=== PATIENT | male | born 1990 | race Caucasian/White ===

== ENCOUNTER 2016-07-05 22:40 | Emergency (ER) | payer BC, OTHER ==
[2016-07-06 06:31] VITALS: BP 134/75
--- NOTE | 2016-07-06 07:50 | RAD ---
HISTORY: Foreign body ingestion COMPARISONS: None VIEWS: 2, frontal and lateral views of the soft tissues of the neck FINDINGS: There is no radiopaque foreign body. There is continuous air column from the pharynx the trachea. The prevertebral soft tissues are normal. The epiglottis and aryepiglottic folds are normal. The lung apices are clear. Skull base is unremarkable. IMPRESSION: UNREMARKABLE SOFT TISSUES OF THE NECK. NO RADIOPAQUE FOREIGN BODY.
--- NOTE | 2016-07-11 20:38 | ED ---
Annmarie, DoctorCony, scribed for Stacy Glaser MD on 07/06/16 at 0613 . Complex/Multi-Sys Presentation - HPI Summary HPI Summary: 26 year old male arrived to [facility] c/o possible ingestion of a piece of aluminum can and subsequent vomiting and hemoptysis yesterday. Pass [place] better after vomiting , but did not notice any piece of the can in his vomit. Noted that today he continued to feel something in the back of his throat. He has been able to eat and drink, and reports that his pain increases with drinking. - History Of Current Complaint Chief Complaint: EDForeignBodyEsophag Time Seen by Provider: 07/05/16 22:51 Hx Obtained From: Patient Onset/Duration: Gradual Onset, Lasting Days, Resolved Timing: Intermittent, Lasting:, Minutes Severity Currently: Moderate Severity Initially: Moderate Location: Pain At: - neck, back of throat Character: Sharp Associated Signs And Symptoms: Positive: Hemoptysis, Vomiting. Negative: Cough , Abdominal Pain - Allergies/Home Medications Allergies/Adverse Reactions: Allergies Allergy/AdvReac Type Severity Reaction Status Date / Time No Known Allergies Allergy Verified 07/05/16 22:48 PMH/Surg Hx/FS Hx/Imm Hx Previously Healthy: Yes - Surgical History Surgery Procedure, Year, and Place: No prior surgery Infectious Disease History: No Infectious Disease History: Denies: Traveled Outside the [place] in Last 30 Days - Family History Known Family History: Positive: Hypertension - Social History Alcohol Use: Weekly Substance Use Type: Reports: None Smoking Status (MU): Never Smoked Tobacco Review of Systems Negative: Fever Positive: Other - hemoptysis Positive: Vomiting, Other - discomfort in the back of the throat . Negative: Abdominal Pain All Other Systems Reviewed And Are Negative: Yes Physical Exam Triage Information Reviewed: Yes Vital Signs On Initial Exam: Initial Vitals Temp Pulse Resp BP Pulse Ox 97.4 F 83 14 173/81 100 07/05/16 22:42 07/05/16 22:42 07/05/16 22:42 07/05/16 22:42 07/05/16 22:42 Vital Signs Reviewed: Yes Appearance: Positive: No Pain Distress, Well-Nourished, Ill-Appearing - mildly ill-appearing Skin: Positive: Warm, Skin Color Reflects Adequate Perfusion, Dry Head/Face: Positive: Normal Head/Face Inspection Eyes: Positive: Conjunctiva Clear ENT: Positive: Normal ENT inspection, Pharynx normal, Other - no swelling or blood in pharynx. Negative: Muffled/hoarse voice Neck: Positive: Supple, Tenderness @ - mild tenderness on right above level of thyroid cartilage Respiratory/Lung Sounds: Positive: Clear to Auscultation, Breath Sounds Present. Negative: Rales, Rhonchi, Wheezes Cardiovascular: Positive: RRR, Pulses are Symmetrical in both Upper and Lower Extremities. Negative: Murmur, Rub Abdomen Description: Positive: Nontender, Soft. Negative: Splenomegaly Bowel Sounds: Positive: Present Musculoskeletal: Positive: Strength/ROM Intact Neurological: Positive: Sensory/Motor Intact, Alert, Oriented to Person Place, Time. Negative: Facial Droop, Focal Deficit @, Slurred Speech Psychiatric: Positive: Affect/Mood Appropriate Diagnostics - Vital Signs Vital Signs Temp Pulse Resp BP Pulse Ox 07/05/16 22:42 97.4 F 83 14 173/81 100 - Laboratory Lab Statement: Any lab studies that have been ordered have been reviewed, and results considered in the medical decision making process. - Radiology Neck X Ray Radiology Interpretation Completed By: ED Physician - soft tissue shows no foreign body ingestion Complex Multi-Symp Course/Dx - Diagnoses Differential Diagnoses/HQI/PQRI: Other - foreign body aspiration, laceration Provider Diagnoses: Esophagitis, acute, Blood pressure elevated without history of HTN Discharge - Discharge Plan Condition: Stable Disposition: HOME Patient Education Materials: Esophagitis (ED) Referrals: [facility] MAIRA Ordonez [Primary Care Provider] - Additional Instructions: You may try liquid antacid such as Maalox or Mylanta if your throat still feels irritated. The unofficial xray reading shows there is no foreign body or metal. We will contact you if there is any change in the reading. Return to the ER if you have any new or worsening symptoms. The documentation as recorded by the Doctor montejo Tahera accurately reflects the service I personally performed and the decisions made by , Stacy Glaser MD.
== END 2016-07-06 06:33 | disposition home or self-care (01) ==
LOC: ED 22:40
DX: K20.9 Esophagitis, unspecified (principal); R11.10 Vomiting, unspecified; R04.2 Hemoptysis; R03.0 Elevated blood-pressure reading, without diagnosis of hypertension
CPT/HCPCS: 70360; 99282